=== PATIENT | female | born 1975 | race African-American/Black ===

== ENCOUNTER 2016-08-03 00:57 | Emergency (ER) | payer SELFPAY ==
[~2016-08-03] VITALS: Ht 170.2 cm; Wt 73.0 kg
[~2016-08-03 00:57] MED LIST: IBUP800T23 PO; ROBA500T PO
[2016-08-03 01:00] VITALS: BP 135/75; PULSE 84; RESP 14; TEMP 98.1; O2SAT 98
--- NOTE | 2016-08-03 02:46 | PD ---
HPI Chief Complaint: Complaint Time Seen by Provider: 02:20 Travel History International Travel<30 days: No Contact w/Intl Traveler<30days: No Traveled to known affect area: No History of Present Illness HPI 41-year-old female came to the emergency room with history of right lower quadrant pain for past 2-3 days. No history of fever or chills. Describes the pain to be dull in nature. No history of vomiting or diarrhea. Patient has had tubal ligation and hence does not think she could be . Moreover even though she is sexually active she uses condoms. Vital signs were stable. Patient also mentioned that for past 2-3 weeks she has noticed that she has post micturition incontinence which is uncontrolled and ends up wetting herself. No dysuria. Patient is A0. [facility] Past Medical History Narrative Medical List of her past medical history is reviewed from the nursing note. Anemia: Yes Diminished Hearing: No Hiatal Hernia: Yes (hernia repair mar 2015) ?: Not : 4 Para: 4 Miscarriage: 0 : 0 Tubal Ligation: Yes (2001) Past Surgical History Appendectomy: Yes () Other Surgery: Yes (hiatal hernia) Social History Alcohol Use: Yes (OCC) Tobacco Use: No Substance Use: Yes (MARIJUANA) Allergies-Medications (Allergen,Severity, Reaction): Coded Allergies: No Known Allergies (Verified , 08/03/16) Comments No known allergies. Reported Meds & Prescriptions Reported Meds & Active Scripts Active Ferrous Sulfate 325 Mg Tab 325 Mg PO DAILY Robaxin (Methocarbamol) 500 Mg Tab 500 Mg PO QID PRN Ibuprofen 800 Mg Tab 800 Mg PO Q6HR PRN Narrative Medication List of her home medications reviewed from the nursing note. Review of Systems Except as stated in HPI: all other systems reviewed are Neg Physical Exam Narrative GENERAL: Awake, alert, no obvious distress SKIN: Warm and dry. HEAD: Atraumatic. Normocephalic. EYES: Pupils equal and round. No scleral icterus. No injection or drainage. ENT: No nasal bleeding or discharge. Mucous membranes pink and moist. NECK: Trachea midline. No JVD. CARDIOVASCULAR: Regular rate and rhythm. No murmur appreciated. RESPIRATORY: No accessory muscle use. Clear to auscultation. Breath sounds equal bilaterally. GASTROINTESTINAL: Abdomen soft, non-tender, nondistended. Hepatic and splenic margins not palpable. : External inspection showed urethral mucosal prolapse. Speculum exam did not show any abnormal discharge. Cervix appeared grossly normal. Swabs were collected. MUSCULOSKELETAL: No obvious deformities. No clubbing. No cyanosis. No edema. NEUROLOGICAL: Awake and alert. No obvious cranial nerve deficits. Motor grossly within normal limits. Normal speech. PSYCHIATRIC: Appropriate mood and affect; insight and judgment normal. Data Data Last Documented VS Vital Signs Date Time Temp Pulse Resp B/P Pulse Ox O2 Delivery O2 Flow Rate FiO2 08/03/16 01:00 98.1 84 14 135/75 98 Room Air Orders Basic Metabolic Panel (Bmp) (08/03/16 02:51) Complete Blood Count With Diff (08/03/16 02:51) Urinalysis - C+S If Indicated (08/03/16 02:51) Iv Access Insert/Monitor (08/03/16 02:51) Ecg Monitoring (08/03/16 02:51) Oximetry (08/03/16 02:51) Sodium Chloride 0.9% Flush (Ns Flush) (08/03/16 03:00) Potassium Chloride (Kcl) (08/03/16 04:15) Labs Laboratory Tests Test 08/03/16 08/03/16 03:00 03:20 Urine Color YELLOW Urine Turbidity CLEAR Urine pH 5.0 Urine Specific [place] 1.013 Urine Protein NEG mg/dL Urine Glucose (UA) NEG mg/dL Urine Ketones 10 mg/dL Urine Occult Blood NEG Urine Nitrite NEG Urine Bilirubin NEG Urine Urobilinogen LESS THAN 2.0 MG/DL Urine Leukocyte Esterase TRACE Urine RBC LESS THAN 1 /hpf Urine WBC 4 /hpf Urine Squamous Epithelial 1 /hpf Cells Urine Bacteria RARE /hpf Microscopic Urinalysis Comment CULT NOT INDICATED White Blood Count 9.2 TH/MM3 Red Blood Count 4.00 MIL/MM3 Hemoglobin 10.8 GM/DL Hematocrit 33.1 % Mean Corpuscular Volume 82.7 FL Mean Corpuscular Hemoglobin 27.1 PG Mean Corpuscular Hemoglobin 32.8 % Concent Red Cell Distribution Width 13.7 % Platelet Count 272 TH/MM3 Mean Platelet Volume 8.2 FL Neutrophils (%) (Auto) 64.2 % Lymphocytes (%) (Auto) 22.6 % Monocytes (%) (Auto) 10.3 % Eosinophils (%) (Auto) 2.1 % Basophils (%) (Auto) 0.8 % Neutrophils # (Auto) 5.9 TH/MM3 Lymphocytes # (Auto) 2.1 TH/MM3 Monocytes # (Auto) 0.9 TH/MM3 Eosinophils # (Auto) 0.2 TH/MM3 Basophils # (Auto) 0.1 TH/MM3 CBC Comment DIFF FINAL Differential Comment Sodium Level 140 MEQ/L Potassium Level 3.4 MEQ/L Chloride Level 107 MEQ/L Carbon Dioxide Level 24.9 MEQ/L Anion Gap 8 MEQ/L Blood Urea Nitrogen 14 MG/DL Creatinine 0.73 MG/DL Estimat Glomerular Filtration 107 ML/MIN Rate Random Glucose 81 MG/DL Calcium Level 8.8 MG/DL MDM Medical Decision Making Medical Screen Exam Complete: Yes Emergency Medical Condition: Yes Medical Record Reviewed: Yes Differential Diagnosis Urethral prolapse, UTI, acute appendicitis Narrative Course 3:21 AM my suspicion based on my clinical exam is very low for acute appendicitis. Patient does have urethral prolapse which is probably the reason for her post-micturition dribbling/incontinence. Patient also has stress incontinence which would be explained by prolapse as well. I educated her regarding the pelvic floor exercise, not to lift heavy weight and follow-up with [facility]. Awaiting for the blood test results and UA. 4 AM Blood test results are back. Patient is slightly anemic. I will give her prescription for ferrous sulfate. Potassium is mildly low. Patient will get a tablet of 10 mEq of potassium. She will be discharged home otherwise. Procedures EKG Prior to Arrival: No Diagnosis Primary Impression: Prolapse urethral mucosa Additional Impression: Anemia Qualified Code: D53.9 - Anemia associated with nutritional deficiency Referrals: Karen Josue MD 3 days Additional Instructions: Please return to the ER if the condition worsens or any other new concerns. Call the [facility] physician whose name and number been given to you on Friday to get an appointment. Take the medication as per the prescription direction. Return to the ER if the condition worsens or any other emergent concerns. Med/Other Pt SpecificInfo: Prescription(s) given Scripts Ferrous Sulfate 325 Mg [id number] Mg PO DAILY #30 TAB Ref 0 Prov:Inge Harris MD 08/03/16 Disposition: 01 DISCHARGE HOME Condition: Stable Inge Harris MD Aug 03, 2016 02:46
[2016-08-03] MEDS ORDERED: SODIUM CHLORIDE 0.9% FLUSH 5 ML FLUSH IVF PRN (03:00)
[2016-08-03 03:30] LABS: AUTOMATED NEUTROPHIL # 5.9 TH/MM3 (1.8-7.7); BASOPHIL # 0.1 TH/MM3 (0-0.2); BASOPHIL % 0.8 % (0.0-2.0); EOSINOPHIL # 0.2 TH/MM3 (0-0.4); EOSINOPHIL % 2.1 % (0.0-4.0); HEMATOCRIT 33.1 % (35.0-46.0); HEMO FLAGS DIFF FINAL; LYMPH % 22.6 % (9.0-44.0); LYMPHOCYTE # 2.1 TH/MM3 (1.0-4.8); MEAN CELL VOLUME 82.7 FL (80.0-100.0); MEAN CORPUSCULAR HEMOGLOBIN 27.1 PG (27.0-34.0); MEAN CORPUSCULAR HGB CONC 32.8 % (32.0-36.0); MONO % 10.3 % (0.0-8.0); NEUT % 64.2 % (16.0-70.0); PLATELET COUNT 272 TH/MM3 (150-450); RED CELL DISTRIBUTION WIDTH 13.7 % (11.6-17.2); WHITE BLOOD COUNT 9.2 TH/MM3 (4.0-11.0)
[2016-08-03 03:38] LABS: BACTERIA, URINE RARE /hpf; BLOOD, URINE NEG (NEG); COMMENT (UR) CULT NOT INDICATED; CULTURE IF INDICATED CULT NOT INDICATED; GLUCOSE,URINE NEG (NEG); KETONE, URINE 10 mg/dL (NEG); NITRITE,URINE NEG (NEG); SQUAMOUS EPITHELIAL CELL URINE 1 /hpf (0-5); URINE COLOR YELLOW (YELLW/STRAW)
[2016-08-03 03:49] LABS: BICARBONATE 24.9 MEQ/L (21.0-32.0); POTASSIUM 3.4 MEQ/L (3.5-5.1)
[2016-08-03] MEDS ORDERED: FERR325T PO (04:03)
[2016-08-03] MEDS ORDERED: POTASSIUM CHLORIDE 20 MEQ CONTROLLED RELEASE TAB PO ONE (04:15)
== END 2016-08-03 04:57 | disposition home or self-care (01) ==
LOC: NEPC 00:57
DX: N81.0 Urethrocele (principal); D53.9 Nutritional anemia, unspecified
CPT/HCPCS: 80048; 81001; 85025; 99284

== ENCOUNTER 2016-12-20 22:57 | Emergency (ER) | payer SELFPAY ==
[~2016-12-20] VITALS: Ht 170.2 cm; Wt 76.0 kg
[~2016-12-20 22:57] MED LIST changes: +FERR325T PO
[2016-12-20 23:00] VITALS: BP 143/65; PULSE 92; RESP 16; TEMP 98.4; O2SAT 100
[2016-12-21 02:16] VITALS: BP 138/68; PULSE 77; RESP 18; O2SAT 100
--- NOTE | 2016-12-21 02:27 | PD ---
HPI Chief Complaint: Edema Time Seen by Provider: 02:09 Travel History International Travel<30 days: No Contact w/Intl Traveler<30days: No Traveled to known affect area: No History of Present Illness HPI The patient is a 41-year-old [place] female who presents emergency department for a 5 day history of bilateral ankle and knee swelling. The patient states she started a new job in September working in the [employer]. The patient states she was doing well until 5 days ago when she noticed that she has some bilateral knee and ankle swelling. The swelling is intermittent, minimally painful, and is not associated with any rash. The patient denies any history of lupus, rheumatoid arthritis, osteoporosis, or trauma to the lower extremities. Symptoms are mild to moderate, there are no alleviating or exacerbating factors. She denies any chronic medical problems. She denies any erythema over the knees and denies any associated fever, chills, or sweats. She denies any known history of gout or pseudogout. PFSH Past Medical History Anemia: Yes Diminished Hearing: No Hiatal Hernia: Yes (hernia repair mar 2015) Tetanus Vaccination: > 5 Years ?: Not LMP: TUBAL : 4 Para: 4 Miscarriage: 0 : 0 Tubal Ligation: Yes (2001) Past Surgical History Appendectomy: Yes () Other Surgery: Yes (hiatal hernia) Social History Alcohol Use: Yes (OCC) Tobacco Use: No Substance Use: Yes (MARIJUANA) Allergies-Medications (Allergen,Severity, Reaction): Coded Allergies: No Known Allergies (Verified , 12/21/16) Reported Meds & Prescriptions Reported Meds & Active Scripts Active Review of Systems Except as stated in HPI: all other systems reviewed are Neg General / Constitutional: No: Fever, Chills Cardiovascular: No: Chest Pain or Discomfort Respiratory: No: Shortness of Breath Gastrointestinal: No: Nausea, Vomiting, Abdominal Pain Genitourinary: No: Dysuria Musculoskeletal: Positive: Arthralgias, Edema, Pain Skin: No Rash, No Itching Neurologic: No: Paresthesia, Sensory Disturbance Physical Exam Narrative GENERAL: Awake, alert, pleasant 41-year-old female who appears her stated age and is in no acute respiratory distress. SKIN: Focused skin assessment warm/dry. No erythema noted over the knees. No calor noted. HEAD: Atraumatic. Normocephalic. EYES: Pupils equal and round. No scleral icterus. No injection or drainage. ENT: No nasal bleeding or discharge. Mucous membranes pink and moist. NECK: Trachea midline. No JVD. CARDIOVASCULAR: Regular rate and rhythm. No murmur appreciated. RESPIRATORY: No accessory muscle use. Clear to auscultation. Breath sounds equal bilaterally. GASTROINTESTINAL: Abdomen soft, non-tender, nondistended. No rebound tenderness. MUSCULOSKELETAL: No obvious deformities. No clubbing. No cyanosis. No edema. There is no obvious edema of the knees or ankles. She has full range of motion with flexion of the hips and knees bilateral. She is able fully plantarflex and dorsiflex. Positive dorsalis pedal pulses. NEUROLOGICAL: Awake and alert. No obvious cranial nerve deficits. Motor grossly within normal limits. Normal speech. Nonfocal. Oriented 4. PSYCHIATRIC: Appropriate mood and affect; insight and judgment normal. Data Data Last Documented VS Vital Signs Date Time Temp Pulse Resp B/P Pulse Ox O2 Delivery O2 Flow Rate FiO2 12/21/16 02:16 77 18 138/68 100 12/20/16 23:00 98.4 Room Air Orders Complete Blood Count With Diff (12/21/16 02:23) Comprehensive Metabolic Panel (12/21/16 02:23) Westergren Sedimentation Rate (12/21/16 02:23) C-Reactive Protein (Crp) (12/21/16 02:23) Thyroid Stimulating Hormone (12/21/16 02:23) Labs Laboratory Tests Test 12/21/16 02:25 White Blood Count 9.0 TH/MM3 Red Blood Count 3.94 MIL/MM3 Hemoglobin 10.2 GM/DL Hematocrit 31.3 % Mean Corpuscular Volume 79.5 FL Mean Corpuscular Hemoglobin 26.0 PG Mean Corpuscular Hemoglobin 32.7 % Concent Red Cell Distribution Width 14.5 % Platelet Count 276 TH/MM3 Mean Platelet Volume 8.2 FL Neutrophils (%) (Auto) 66.5 % Lymphocytes (%) (Auto) 22.1 % Monocytes (%) (Auto) 8.7 % Eosinophils (%) (Auto) 1.8 % Basophils (%) (Auto) 0.9 % Neutrophils # (Auto) 6.0 TH/MM3 Lymphocytes # (Auto) 2.0 TH/MM3 Monocytes # (Auto) 0.8 TH/MM3 Eosinophils # (Auto) 0.2 TH/MM3 Basophils # (Auto) 0.1 TH/MM3 CBC Comment DIFF FINAL Differential Comment Erythrocyte Sedimentation Rate 9 mm/hr Sodium Level 140 MEQ/L Potassium Level 3.6 MEQ/L Chloride Level 108 MEQ/L Carbon Dioxide Level 23.8 MEQ/L Anion Gap 8 MEQ/L Blood Urea Nitrogen 13 MG/DL Creatinine 0.72 MG/DL Estimat Glomerular Filtration 109 ML/MIN Rate Random Glucose 85 MG/DL Calcium Level 9.0 MG/DL Total Bilirubin 0.4 MG/DL Aspartate Amino Transf 10 U/L (AST/SGOT) Alanine Aminotransferase 17 U/L (ALT/SGPT) Alkaline Phosphatase 39 U/L C-Reactive Protein LESS THAN 0.29 MG/DL Total Protein 7.8 GM/DL Albumin 3.9 GM/DL Thyroid Stimulating Hormone 3.230 uIU/ML 3rd Gen [facility] Medical Decision Making Medical Screen Exam Complete: Yes Emergency Medical Condition: Yes Medical Record Reviewed: Yes Interpretation(s) Laboratory Tests Test 12/21/16 02:25 White Blood Count 9.0 TH/MM3 Red Blood Count 3.94 MIL/MM3 Hemoglobin 10.2 GM/DL Hematocrit 31.3 % Mean Corpuscular Volume 79.5 FL Mean Corpuscular Hemoglobin 26.0 PG Mean Corpuscular Hemoglobin 32.7 % Concent Red Cell Distribution Width 14.5 % Platelet Count 276 TH/MM3 Mean Platelet Volume 8.2 FL Neutrophils (%) (Auto) 66.5 % Lymphocytes (%) (Auto) 22.1 % Monocytes (%) (Auto) 8.7 % Eosinophils (%) (Auto) 1.8 % Basophils (%) (Auto) 0.9 % Neutrophils # (Auto) 6.0 TH/MM3 Lymphocytes # (Auto) 2.0 TH/MM3 Monocytes # (Auto) 0.8 TH/MM3 Eosinophils # (Auto) 0.2 TH/MM3 Basophils # (Auto) 0.1 TH/MM3 CBC Comment DIFF FINAL Differential Comment Erythrocyte Sedimentation Rate 9 mm/hr Sodium Level 140 MEQ/L Potassium Level 3.6 MEQ/L Chloride Level 108 MEQ/L Carbon Dioxide Level 23.8 MEQ/L Anion Gap 8 MEQ/L Blood Urea Nitrogen 13 MG/DL Creatinine 0.72 MG/DL Estimat Glomerular Filtration 109 ML/MIN Rate Random Glucose 85 MG/DL Calcium Level 9.0 MG/DL Total Bilirubin 0.4 MG/DL Aspartate Amino Transf 10 U/L (AST/SGOT) Alanine Aminotransferase 17 U/L (ALT/SGPT) Alkaline Phosphatase 39 U/L C-Reactive Protein LESS THAN 0.29 MG/DL Total Protein 7.8 GM/DL Albumin 3.9 GM/DL Thyroid Stimulating Hormone 3.230 uIU/ML 3rd Gen Differential Diagnosis Differential diagnoses includes myxedema, rheumatoid arthritis, osteoarthritis, lupus, autoimmune disorder, dependent edema. Narrative Course IV was established, labs are drawn and sent, and the patient was placed on cardiac telemetry monitoring and continuous pulse oximetry monitoring. The patient is mildly anemic. Sedimentation rate and CRP are normal, I doubt this is autoimmune related. Patient is stable for outpatient follow-up. Diagnosis Primary Impression: Arthralgia Qualified Code: M25.50 - Arthralgia, unspecified joint Patient Instructions: General Instructions Additional Instructions: Please provide a patient a copy of her lab results at discharge. Follow-up with a primary physician. Return if symptoms worsen or progress. Med/Other Pt SpecificInfo: No Change to Meds Disposition: 01 DISCHARGE HOME Condition: Stable Hi Sesay MD Dec 21, 2016 02:27
[2016-12-21 02:34] LABS: BASOPHIL # 0.1 TH/MM3 (0-0.2); BASOPHIL % 0.9 % (0.0-2.0); EOSINOPHIL # 0.2 TH/MM3 (0-0.4); EOSINOPHIL % 1.8 % (0.0-4.0); HEMATOCRIT 31.3 % (35.0-46.0); HEMO FLAGS DIFF FINAL; LYMPH % 22.1 % (9.0-44.0); MEAN CELL VOLUME 79.5 FL (80.0-100.0); MEAN CORPUSCULAR HGB CONC 32.7 % (32.0-36.0); MONO % 8.7 % (0.0-8.0); NEUT % 66.5 % (16.0-70.0); PLATELET COUNT 276 TH/MM3 (150-450); RED BLOOD COUNT 3.94 MIL/MM3 (4.00-5.30); RED CELL DISTRIBUTION WIDTH 14.5 % (11.6-17.2)
[2016-12-21 02:54] LABS: ALT (GPT) 17 U/L (10-53); ANION GAP 8 MEQ/L (5-15); AST (GOT) 10 U/L (15-37); BICARBONATE 23.8 MEQ/L (21.0-32.0); BLOOD UREA NITROGEN 13 MG/DL (7-18); CHLORIDE 108 MEQ/L (98-107); GLOMERULAR FILTRATION RATE 109 ML/MIN (>89); POTASSIUM 3.6 MEQ/L (3.5-5.1); SODIUM (NA) 140 MEQ/L (136-145)
[2016-12-21 03:04] LABS: ALKALINE PHOSPHATASE 39 U/L (45-117); TOTAL BILIRUBIN ADULT 0.4 MG/DL (0.2-1.0)
== END 2016-12-21 04:16 | disposition home or self-care (01) ==
LOC: NEPE 22:57
DX: M25.50 Pain in unspecified joint (principal); M25.462 Effusion, left knee; M25.461 Effusion, right knee; M25.472 Effusion, left ankle; M25.471 Effusion, right ankle
CPT/HCPCS: 80053; 84443; 85025; 85652; 86140; 99283

== ENCOUNTER 2017-05-17 10:14 | Emergency (ER) | payer SELFPAY ==
[~2017-05-17] VITALS: Ht 170.2 cm; Wt 72.5 kg
[2017-05-17 10:16] VITALS: BP 145/77; PULSE 68; RESP 17; TEMP 98.4; O2SAT 100
[2017-05-17] MEDS ORDERED: IBUPROFEN 800 MG TAB PO ONE (11:00)
--- NOTE | 2017-05-17 11:21 | RADRPT ---
EXAM DATE/TIME: 05/17/2017 11:04 [place] COMPARISON: No previous studies available for comparison. INDICATIONS : Pain for several days without trauma. MEDICAL HISTORY : None. SURGICAL HISTORY : None. ENCOUNTER: Initial ACUITY: 4 - 6 days PAIN SCORE: 5/10 LOCATION: Left heel, pedal surface. FINDINGS: 2 views left heel. Small Achilles calcaneal spur. Bone alignment within normal limits. No evidence o f fracture. CONCLUSION: Small Achilles calcaneal spur. Left heel series otherwise within normal limits. Abhay Grissom MD on May 17, 2017 at 11:17 Board Certified Radiologist. This report was verified electronically.
[2017-05-17] MEDS ORDERED: IBUP-232 PO (11:53)
--- NOTE | 2017-05-17 11:53 | PD ---
HPI . Left heel pain Chief Complaint: Injury Time Seen by Provider: 10:45 Travel History International Travel<30 days: No Contact w/Intl Traveler<30days: No Traveled to known affect area: No History of Present Illness HPI 41-year-old female visits emergency department for evaluation of left heel pain 4 days. She is ambulatory from triage. Patient denies any recent foot trauma or falls. Patient denies any major medical history. Patient doesn't take any daily medication. Patient denies any nausea, vomiting, diarrhea, fevers, chills , malaise, other joint pains. PFSH Past Medical History Hx Anticoagulant Therapy: No Anemia: Yes Cardiovascular Problems: No Chemotherapy: No Cerebrovascular Accident: No Diabetes: No Diminished Hearing: No Hiatal Hernia: Yes (hernia repair mar 2015) Respiratory: No Immunizations Current: Yes ?: Unknown LMP: tubal ligation : 4 Para: 4 Miscarriage: 0 : 0 Ectopic : No Ovarian Cysts: No Tubal Ligation: Yes (2001) Past Surgical History Appendectomy: Yes () Hysterectomy: No Other Surgery: Yes (hiatal hernia) Social History Alcohol Use: Yes (OCC) Tobacco Use: No Substance Use: Yes (MARIJUANA) Allergies-Medications (Allergen,Severity, Reaction): Coded Allergies: No Known Allergies (Verified , 12/21/16) Reported Meds & Prescriptions Reported Meds & Active Scripts Active Ibuprofen 600 Mg Tab 600 Mg PO Q8H PRN Review of Systems Except as stated in HPI: all other systems reviewed are Neg Physical Exam Narrative GENERAL: Well-nourished, well-developed 41-year-old female patient in no acute distress. Nontoxic appearing. SKIN: Focused skin assessment warm/dry. HEAD: Normocephalic. Atraumatic. EYES: No scleral icterus. No injection or drainage. NECK: Supple, trachea midline. No JVD or lymphadenopathy. CARDIOVASCULAR: Regular rate and rhythm without murmurs, gallops, or rubs. Pulses +2 bilaterally. RESPIRATORY: Breath sounds equal bilaterally. No accessory muscle use. GASTROINTESTINAL: Abdomen soft, non-tender, nondistended. MUSCULOSKELETAL: Range of motion noted in left foot. No obvious deformity, ecchymosis, erythema, cyanosis, or edema. Data Data Last Documented VS Vital Signs Date Time Temp Pulse Resp B/P (MAP) Pulse Ox O2 Delivery O2 Flow Rate FiO2 05/17/17 12:00 05/17/17 10:16 98.4 68 17 100 Room Air Orders Orders Foot, Heel Only ([id number]) (05/17/17 10:50) Ice/Cold Pack (05/17/17 10:50) Ibuprofen (Motrin) (05/17/17 11:00) Ed Discharge Order (05/17/17 11:53) Splint Or Brace Apply/Monitor (05/17/17 11:53) [facility] Medical Decision Making Medical Screen Exam Complete: Yes Emergency Medical Condition: Yes Differential Diagnosis Differential diagnoses include but not limited to heel spur, heel fracture, contusion Narrative Course 41-year-old female presents emergency department for evaluation of left heel pain 4 days. X-ray of the left heel ordered and pending. Ice applied to the left heel. Ibuprofen ordered for pain management. Left heel x-ray shows calcaneal spur. Patient discharged home with prescription for ibuprofen and Rice therapy instructions. Patient instructed to return the emergency Department with any worsening condition but otherwise follow-up with primary care orthopedics. Patient thankful for care. Diagnosis Primary Impression: Heel spur Qualified Codes: M77.32 - Calcaneal spur, left foot Referrals: Primary Care Physician Patient Instructions: General Instructions, Heel Spur (ED) Additional Instructions: Please return to emergency department if your symptoms return or worsen. Follow up with your primary care provider. Take medications as prescribed. Med/Other Pt SpecificInfo: Prescription(s) given Scripts Ibuprofen (Ibuprofen) 600 Mg Tab 600 MG PO Q8H Y for PAIN, #20 TAB 0 Refills Prov: Bianka Balderas Valentine KNOTT 05/17/17 Disposition: 01 DISCHARGE HOME Condition: Stable Bianka Balderas Valentine KNOTT May 17, 2017 11:53
== END 2017-05-17 12:00 | disposition home or self-care (01) ==
LOC: NEPD 10:14
DX: M77.32 Calcaneal spur, left foot (principal); Z86.2 Personal history of diseases of the blood and blood-forming organs and certain disorders involving the immune mechanism; Z87.39 Personal history of other diseases of the musculoskeletal system and connective tissue
CPT/HCPCS: 73650; 99283; L3260

== ENCOUNTER 2017-07-20 00:47 | Emergency (ER) | payer SELFPAY ==
[2017-07-20] MEDS ORDERED: SODIUM CHLORIDE 0.9% FLUSH 10 ML FLUSH IV FLUSH (01:30)
[2017-07-20 01:45] LABS: AUTOMATED NEUTROPHIL # 5.1 TH/MM3 (1.8-7.7); BASOPHIL # 0.1 TH/MM3 (0-0.2); BASOPHIL % 1.1 % (0.0-2.0); EOSINOPHIL # 0.1 TH/MM3 (0-0.4); EOSINOPHIL % 1.8 % (0.0-4.0); HEMATOCRIT 31.2 % (35.0-46.0); HEMO FLAGS DIFF FINAL; HEMOGLOBIN 9.9 GM/DL (11.6-15.3); LYMPH % 20.8 % (9.0-44.0); LYMPHOCYTE # 1.5 TH/MM3 (1.0-4.8); MEAN CELL VOLUME 80.2 FL (80.0-100.0); MEAN CORPUSCULAR HEMOGLOBIN 25.5 PG (27.0-34.0); MEAN CORPUSCULAR HGB CONC 31.7 % (32.0-36.0); MEAN PLATELET VOLUME 7.9 FL (7.0-11.0); MONO % 7.3 % (0.0-8.0); MONOCYTE # 0.5 TH/MM3 (0-0.9); PLATELET COUNT 285 TH/MM3 (150-450); RED BLOOD COUNT 3.89 MIL/MM3 (4.00-5.30); RED CELL DISTRIBUTION WIDTH 16.7 % (11.6-17.2); WHITE BLOOD COUNT 7.4 TH/MM3 (4.0-11.0)
[2017-07-20 01:49] LABS: AMORPHOUS SEDIMENT, URINE RARE; BACTERIA, URINE OCC /hpf; BILIRUBIN, URINE NEG (NEG); BLOOD, URINE NEG (NEG); COMMENT (UR) CULT NOT INDICATED; CULTURE IF INDICATED CULT NOT INDICATED; GLUCOSE,URINE NEG (NEG); KETONE, URINE NEG (NEG); NITRITE,URINE NEG (NEG); SQUAMOUS EPITHELIAL CELL URINE 26 /hpf (0-5); URINE COLOR YELLOW (YELLW/STRAW); URINE LEUKOCYTE ESTERASE MOD (NEG)
[2017-07-20 02:02] LABS: ANION GAP 5 MEQ/L (5-15); BLOOD UREA NITROGEN 9 MG/DL (7-18); CALCIUM 8.4 MG/DL (8.5-10.1); CHLORIDE 111 MEQ/L (98-107); GLOMERULAR FILTRATION RATE 112 ML/MIN (>89); GLUCOSE,RANDOM 96 MG/DL (74-106); POTASSIUM 3.7 MEQ/L (3.5-5.1); SODIUM (NA) 141 MEQ/L (136-145)
[2017-07-20 02:05] LABS: BETA HCG QUANT LESS THAN 1 MIU/ML (0-5)
[2017-07-20] MEDS: IBUPROFEN 600 MG TAB PO (04:49)
[2017-07-20 06:41] LABS: CHLAMYDIA PCR NOT DETECTED (NOT DETECT); NEISSERIA PCR NOT DETECTED (NOT DETECT)
== END 2017-07-20 04:58 | disposition home or self-care (01) ==
LOC: NEPC 00:47
DX: D28.2 Benign neoplasm of uterine tubes and ligaments (principal); D64.9 Anemia, unspecified
CPT/HCPCS: 76856; 80048; 81001; 84702; 85025; 87491; 87591; 93975; 99284

== ENCOUNTER 2017-10-28 13:50 | Emergency (ER) | payer SELFPAY ==
[~2017-10-28] VITALS: Ht 170.2 cm; Wt 75.0 kg
[~2017-10-28 13:50] MED LIST changes: -FERR325T PO; +IBUP-232 PO; -IBUP800T23 PO; -ROBA500T PO
[2017-10-28 14:15] VITALS: BP 139/93; PULSE 95; RESP 20; TEMP 98; O2SAT 95
[2017-10-28] MEDS ORDERED: TETANUS/DIPHTHERIA TOXOID ADULT 0.5 ML VIAL IM ONE (14:45)
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
[2017-10-28] MEDS ORDERED: BACT800T5 PO (16:11)
== END 2017-10-28 16:28 | disposition home or self-care (01) ==
LOC: NEPD 13:50
DX: S66.222A Laceration of extensor muscle, fascia and tendon of left thumb at wrist and hand level, initial encounter (principal); S60.511A Abrasion of right hand, initial encounter; W25.XXXA Contact with sharp glass, initial encounter; Z23 Encounter for immunization
CPT/HCPCS: 12001; 73130; 90471; 90714; 99283; L3808

== ENCOUNTER 2017-11-05 08:00 | Emergency (ER) | payer SELFPAY ==
[~2017-11-05 08:00] MED LIST changes: +BACT800T5 PO
[2017-11-05 08:02] VITALS: BP 137/61; PULSE 83; RESP 18; TEMP 98.8; O2SAT 98
--- NOTE | 2017-11-05 08:14 | PD ---
HPI Chief Complaint: Wound/Suture/Staple Re-Check Time Seen by Provider: 08:09 Travel History International Travel<30 days: No Contact w/Intl Traveler<30days: No Traveled to known affect area: No History of Present Illness HPI 42-year-old female presents to the emergency department for removal of stitches from her left hand just below her thumb. She was seen here on October 28 and the stitches were placed. She does have a tendon laceration and has a follow-up appointment with Dr. Steve on November 07. Denies drainage, edema, erythema to the laceration site. Denies pain. No known aggravating or relieving factors. Symptoms are mild in severity. Has not taken any medications or try any treatments to alleviate her symptoms. No primary care provider. No known allergies. Denies significant past medical history. Has no other medical complaints. No other modifying factors or associated signs and symptoms. PFSH Past Medical History Hx Anticoagulant Therapy: No Anemia: Yes Cardiovascular Problems: No Chemotherapy: No Cerebrovascular Accident: No Diabetes: No Diminished Hearing: No Hiatal Hernia: Yes (hernia repair mar 2015) Respiratory: No Immunizations Current: Yes : 4 Para: 4 Miscarriage: 0 : 0 Ectopic : No Ovarian Cysts: No Tubal Ligation: Yes (2001) Past Surgical History Appendectomy: Yes () Hysterectomy: No Other Surgery: Yes (hiatal hernia) Social History Alcohol Use: Yes (OCC) Tobacco Use: No Substance Use: Yes (MARIJUANA) Allergies-Medications (Allergen,Severity, Reaction): Coded Allergies: No Known Allergies (Verified Adverse Reaction, Unknown, 11/05/17) Reported Meds & Prescriptions Reported Meds & Active Scripts Active Review of Systems Except as stated in HPI: all other systems reviewed are Neg Physical Exam Narrative GENERAL: Well-nourished, well-developed black female patient, in no acute distress SKIN: Warm and dry. Dorsal aspect of left hand just below the thumb with laceration that is well approximated and with sutures intact; without erythema, edema, drainage. No signs of infection. Patient is unable to actively extend left thumb secondary to tendon laceration. HEAD: Atraumatic. Normocephalic. EYES: Pupils equal and round. No scleral icterus. No injection or drainage. ENT: Mucosa pink and moist. Airway patent. NECK: Trachea midline. CARDIOVASCULAR: Regular rate. RESPIRATORY: No accessory muscle use. GASTROINTESTINAL: Flat. MUSCULOSKELETAL: No obvious deformities. No clubbing. No cyanosis. No edema. NEUROLOGICAL: Awake and alert. Oriented 3. No obvious cranial nerve deficits. Motor grossly within normal limits. Normal speech. PSYCHIATRIC: Appropriate mood and affect; insight and judgment normal. Data Data Last Documented VS Vital Signs Date Time Temp Pulse Resp B/P (MAP) Pulse Ox O2 Delivery O2 Flow Rate FiO2 11/05/17 08:02 98.8 83 18 137/61 (86) 98 Orders Orders Ed Discharge Order (11/05/17 08:16) MDM Medical Decision Making Medical Screen Exam Complete: Yes Emergency Medical Condition: Yes Medical Record Reviewed: Yes Differential Diagnosis Encounter for suture removal, wound recheck, medical clearance Narrative Course 42-year-old female presents for encounter for suture removal. No signs of infection. Sutures removed. Patient tolerated well. She does have extensor tendon laceration of the left thumb and has follow-up appointment with Dr. Steve on November 07. Instructed patient to follow-up at her scheduled appointment. Instructed patient to follow up with primary care provider. Patient verbalizes understanding and agreement with treatment plan. Patient is medically cleared and stable for discharge. Discussed reasons to return to the emergency department. Patient agrees with treatment plan. The patients vital signs are stable and the patient is stable for outpatient follow-up and treatment. Patient discharged home, stable and in no acute distress. Diagnosis Primary Impression: Encounter for removal of sutures Referrals: Jaya Steve III, MD Hand Surgeon Primary Care Physician Patient Instructions: General Instructions, Stitches Removal (ED) Additional Instructions: Follow-up with hand surgeon as scheduled appointment Return to the emergency department immediately with worsening of symptoms Med/Other Pt SpecificInfo: No Change to Meds, No Meds Exist/No RX given Disposition: 01 DISCHARGE HOME Condition: Stable Luisa Cortes November 05, 2017 08:14
[2017-11-13] MEDS ORDERED: IBUP1TAB7 PO (13:01)
[2017-11-13] MEDS ORDERED: CEPH-460 PO (13:01)
[2017-11-13] MEDS ORDERED: HYDR-3288 PO (13:01)
== END 2017-11-05 08:32 | disposition home or self-care (01) ==
LOC: NEPD 08:00
DX: S61.412D Laceration without foreign body of left hand, subsequent encounter (principal); W45.8XXD Other foreign body or object entering through skin, subsequent encounter; Z48.02 Encounter for removal of sutures
CPT/HCPCS: 99281

== ENCOUNTER 2017-11-08 22:17 | Emergency (ER) | payer SELFPAY ==
[~2017-11-08] VITALS: Ht 170.2 cm; Wt 80.0 kg
[2017-11-08 22:38] VITALS: BP 151/71; PULSE 78; RESP 18; TEMP 97.9; O2SAT 100
[2017-11-08 23:03] VITALS: BP 134/71; PULSE 76; RESP 16; O2SAT 99
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
[2017-11-09] MEDS ORDERED: IBUP-232 PO (00:34)
[2017-11-13] MEDS ORDERED: CEPH-460 PO (13:01)
[2017-11-13] MEDS ORDERED: IBUP1TAB7 PO (13:01)
[2017-11-13] MEDS ORDERED: HYDR-3288 PO (13:01)
== END 2017-11-09 01:15 | disposition home or self-care (01) ==
LOC: NEPC 22:17
DX: S20.219A Contusion of unspecified front wall of thorax, initial encounter (principal); S50.312A Abrasion of left elbow, initial encounter; S80.212A Abrasion, left knee, initial encounter; D64.9 Anemia, unspecified; V18.0XXA Pedal cycle driver injured in noncollision transport accident in nontraffic accident, initial encounter; Y93.55 Activity, bike riding; Y92.480 Sidewalk as the place of occurrence of the external cause
CPT/HCPCS: 71101; 73070; 73564; 99284

== ENCOUNTER → 2017-11-13 | Day surgery (SDC) | END | disposition home or self-care (01) | DX: S66.222A Laceration of extensor muscle, fascia and tendon of left thumb at wrist and hand level, initial encounter (principal); S61.412A Laceration without foreign body of left hand, initial encounter; B95.8 Unspecified staphylococcus as the cause of diseases classified elsewhere; W25.XXXA Contact with sharp glass, initial encounter | CPT/HCPCS: 01810; 26410; 26418; 86403; 87015; 87070; 87077; 87102; 87116; 87186; 87205; 87206; J0690; J2250; J3010; J3370; J7050; J7120; L3808 ==

== ENCOUNTER 2017-11-20 21:21 | Emergency (ER) | payer SELFPAY ==
[~2017-11-20 21:21] MED LIST changes: -BACT800T5 PO; +CEPH-460 PO; +HYDR-3288 PO; +IBUP1TAB7 PO
== END 2017-11-20 22:11 | disposition left against medical advice (07) ==
LOC: NED 21:21
DX: Z00.00 Encounter for general adult medical examination without abnormal findings (principal); Z53.21 Procedure and treatment not carried out due to patient leaving prior to being seen by health care provider
CPT/HCPCS: 99281